=== PATIENT | female | born 1985 | race Caucasian/White ===

== ENCOUNTER 2021-01-26 02:36 | Inpatient (IN) | payer OTHER, MEDICAID ==
[~2021-01-26] VITALS: Ht 167.6 cm; Wt 147.0 kg
[2021-01-26 02:44] VITALS: BP 152/95
[2021-01-26 03:29] LABS: ABSOLUTE BASOPHILS 0.1 thou/uL (0.0-0.2); ABSOLUTE EOSINOPHILS 0.3 thou/uL (0.0-0.7); ABSOLUTE LYMPHOCYTES 1.9 thou/uL (0.8-5.3); ABSOLUTE MONOCYTES 0.6 thou/uL (0.0-1.2); ABSOLUTE NEUTROPHILS 5.9 thou/uL (1.6-8.1); BASOPHILS 0.9 %; EOSINOPHILS 3.5 %; HEMATOCRIT 44.1 % (37.0-47.0); HEMOGLOBIN 14.9 gm/dL (12.0-15.0); MCHC 33.7 g/dL (28.0-37.0); MCV 88.9 fL (80.0-100.0); MONOCYTES 6.7 %; MPV 7.6 fl. (7.2-11.1); NUCLEATED RBCS 0 /100WBC; PLATELET COUNT* 234 thou/uL (150-400); POLYS 66.9 %; RBC 4.96 mil/uL (4.20-5.00); RDW-CV 14.1 % (10.5-14.5); WBC 8.8 thou/uL (4.0-11.0)
[2021-01-26 03:32] LABS: CALCIUM 8.7 mg/dL (8.5-10.1); CREATININE 0.8 mg/dL (0.6-1.3); POTASSIUM 3.6 mmol/L (3.5-5.1)
[2021-01-26 03:37] LABS: ALBUMIN 3.5 g/dL (3.4-5.0); TOTAL BILIRUBIN 0.2 mg/dL (<0.1-1.0); TOTAL PROTEIN 7.4 g/dL (6.4-8.2)
[2021-01-26 07:54] VITALS: BP 145/77
--- NOTE | 2021-01-26 12:06 | 2DMMODE ---
[place] [address] 2 D/M-MODE ECHOCARDIOGRAM Name: JAMESSAMINA Room: [address] MBill#: [id number] Admission: 01/26/21 Attend Phys: Lionel Jasmine Discharge: Date of : 81 Date of Service: 01/26/21 1206 Report #: [id number] THIS REPORT FOR: cc: FAM - No family physician/PCP FAM - No family physician/PCP Mando De Souza MD [facility] ~ APPROVED REPORT Study performed: 01/26/2021 10:17:15 EXAM: Comprehensive 2D, Doppler, and color-flow Echocardiogram Patient Location: In-Patient Room #: 200 Status: routine BSA: 2.46 HR: 85 bpm BP: 145/77 mmHg Rhythm: NSR Other Information Study Quality: Good Indications Dyspnea 2D Dimensions IVSd: 13.20 (7-11mm) LVOT Diam: 19.82 (18-24mm) LVDd: 46.71 mm PWd: 11.78 (7-11mm) LVDs: 21.67 (25-40mm) Aortic Root: 29.32 mm Volumes Left Atrial Volume (Systole) LA ESV Index: 17.90 mL/m2 Aortic Valve AoV Peak Donell.: 2.00 m/s AO Peak Gr.: 15.97 mmHg LVOT Max P.26 mmHg AO Mean Gr.: 8.61 mmHg LVOT Mean P.81 mmHg LVOT Max V: 1.35 m/s AO V2 VTI: 31.60 cm LVOT Mean V: 0.91 m/s NICO (VTI): 2.22 cm2 LVOT V1 VTI: 22.72 [place] [address] 2 D/M-MODE ECHOCARDIOGRAM Name: SAMINA RAMIREZ Room: [address] M.R.#: [id number] Admission: 01/26/21 Attend Phys: Lionel Jasmine Discharge: Date of : 81 Date of Service: 01/26/21 1206 Report #: [id number] Mitral Valve E/A Ratio: 1.02 MV Decel. Time: 148.14 ms MV E Max Donell.: 1.27 m/s MV PHT: 42.96 ms MVA (PHT): 5.12 cm2 TDI E/Lateral E': 9.07 Lateral E' Donell.: 0.14 m/s Tricuspid Valve RAP Estimate: 5.00 mmHg TR Peak Gr.: 30.65 mmHg RVSP: 35.00 mmHg PA Pressure: 35.00 mmHg Left Ventricle The left ventricle is normal size. There is normal LV segmental wall motion. Mild concentric left ventricular hypertrophy. Left ventricular systolic function is normal. LVEF is 70%. This study is not technically sufficient to allow evaluation of the LV diastolic function. Right Ventricle The right ventricle is normal size. The right ventricular systolic function is normal. Atria The left atrium size is normal. The right atrium size is normal. Aortic Valve The aortic valve is normal in structure. No aortic regurgitation is present. There is no aortic valvular stenosis. Mitral Valve The mitral valve is normal in structure. There is no mitral valve regurgitation noted. No evidence of mitral valve stenosis. Tricuspid Valve The tricuspid valve is normal in structure. Trace tricuspid regurgitation. The RVSP is 35-40 mmHg. Pulmonic Valve The pulmonary valve is normal in structure. There is no pulmonic [place] [address] 2 D/M-MODE ECHOCARDIOGRAM Name: SAMINA RAMIREZ [id number] Admission: 01/26/21 Attend Phys: Lionel Jasmine Discharge: Date of : 81 Date of Service: 01/26/21 1206 Report #: [id number] Great Vessels The aortic root is normal in size. IVC is normal in size and collapses >50% with inspiration. Pericardium There is no pericardial effusion. <Conclusion> The left ventricle is normal size. Mild concentric left ventricular hypertrophy. Left ventricular systolic function is normal. LVEF is 70%. Trace tricuspid regurgitation. The RVSP is 35-40 mmHg. <ELECTRONICALLY SIGNED> By: Mando De Souza MD, FACC 01/26/21 120 05 05 Mando De Souza MD, FACC /INF
--- NOTE | 2021-01-26 12:22 | EKG ---
[place] [address] ELECTROCARDIOGRAM REPORT Name: SAMINA RAMIREZ Room: [address]#: [id number] Admission: 01/26/21 Attend Phys: Lionel Jasmine Discharge: Date of : 81 Date of Service: 01/26/21 0244 Report #: [id number] THIS REPORT FOR: //name// [facility] ED Test Date: 2021-01-26 Test Time: 02:44:37 Pat Name: SAMINA RAMIREZ Department: Room: [facility] Gender: F [employer]: : 1985 Requested By: Haylee Ray Order Number: [id number] MD: Mando De Souza Measurements Intervals [place] Rate: 120 P: 81 CA: 169 QRS: 70 QRSD: 95 T: -47 QT: 308 QTc: 436 Interpretive Statements Sinus tachycardia Borderline repolarization abnormality No previous ECG available for comparison Electronically Signed On 01-26-2021 12:22:00 CDT by Mando De Souza [email or web address] <ELECTRONICALLY SIGNED> By: Mando De Souza MD, [facility] 01/26/21 1222 0244 0244 Mando De Souza MD, [facility] /EPI
[2021-01-26 12:57] LABS: URINE BILIRUBIN NEGATIVE (Negative); URINE BLOOD TRACE (Negative); URINE CLARITY CLEAR; URINE COLOR YELLOW; URINE GLUCOSE-RANDOM TRACE (Negative); URINE KETONES NEGATIVE (Negative); URINE LEUKOCYTES-REFLEX NEGATIVE (Negative); URINE NITRITE-REFLEX NEGATIVE (Negative); URINE PROTEIN NEGATIVE (Negative); URINE SPECIFIC GRAVITY 1.025 (1.005-1.030); URINE UROBILINOGEN 0.2 E.U./dl (0.2-1.0)
[2021-01-26 20:31] VITALS: BP 133/87
[2021-01-26 23:40] VITALS: BP 131/70
[2021-01-27 04:11] VITALS: BP 120/74
[2021-01-27 05:25] LABS: HEMATOCRIT 43.5 % (37.0-47.0); HEMOGLOBIN 14.2 gm/dL (12.0-15.0); MCH 29.5 pg (26.0-34.0); MCHC 32.6 g/dL (28.0-37.0); MCV 90.3 fL (80.0-100.0); MPV 7.3 fl. (7.2-11.1); RBC 4.81 mil/uL (4.20-5.00); WBC 15.4 thou/uL (4.0-11.0)
[2021-01-27 05:33] LABS: CALCIUM 8.9 mg/dL (8.5-10.1); CREATININE 0.7 mg/dL (0.6-1.3); MAGNESIUM 1.9 mg/dL (1.8-2.4); POTASSIUM 4.2 mmol/L (3.5-5.1)
[2021-01-27 08:00] VITALS: BP 140/72
[2021-01-27 15:45] VITALS: BP 138/64
[2021-01-27 15:51] VITALS: BP 177/76
[2021-01-27 20:00] VITALS: BP 149/72
[2021-01-28] VITALS: BP 142/85
[2021-01-28 08:00] VITALS: BP 126/81
[2021-01-28] MEDS ORDERED: PROAIR HFA8.5 GM INH (08:50)
[2021-01-28] MEDS ORDERED: CEFDINIR300 MG PO (08:50)
[2021-01-28] MEDS ORDERED: PREDNISONE 10 M10 MG PO (08:50)
[2021-01-28] MEDS ORDERED: AZITHROMYCIN500 MG PO (08:50)
[2021-01-28] MEDS ORDERED: TESSALON PERLE100 M1 PO (08:51)
[2021-01-28 13:03] VITALS: BP 126/81
== END 2021-01-28 14:40 | disposition home or self-care (01) | DRG 196 ==
LOC: M.ERS 02:36 → M.2W 04:57 → M.TBA-ER 04:57 → M.2W 08:31
PROVIDERS: Emergency Medicine; Internal Medicine; ADMIT Family Medicine; ATTEND Family Medicine
PROC: 5A0935A Assistance with Respiratory Ventilation, Less than 24 Consecutive Hours, High Flow/Velocity Cannula (ICD-10-PCS; principal; 2021-01-27)
DX: J84.9 Interstitial pulmonary disease, unspecified (principal); J96.01 Acute respiratory failure with hypoxia; R65.11 Systemic inflammatory response syndrome (SIRS) of non-infectious origin with acute organ dysfunction; Z68.43 Body mass index [BMI] 50.0-59.9, adult; Z20.822 Contact with and (suspected) exposure to COVID-19; E66.01 Morbid (severe) obesity due to excess calories; F17.210 Nicotine dependence, cigarettes, uncomplicated; R73.9 Hyperglycemia, unspecified; G47.33 Obstructive sleep apnea (adult) (pediatric); J45.909 Unspecified asthma, uncomplicated; Z79.899 Other long term (current) drug therapy